=== PATIENT | male | born 1955 | race Caucasian/White ===

== ENCOUNTER 2016-02-26 08:52 | Inpatient (IN) | payer BC ==
[~2016-02-26] VITALS: Ht 177.8 cm; Wt 71.5 kg
[2016-03-03] VITALS (12 sets, daily range): BP systolic 96–123; BP diastolic 43–82; PULSE 66–109; TEMP 97.7–98.8
[2016-03-03] MEDS ORDERED: ASPIRIN 81M81 MG/TA2 PO (06:23)
[2016-03-03] MEDS ORDERED: CIALIS5 MG PO (06:23)
[2016-03-03] MEDS ORDERED: MULTIPLE VITAMI1 CAP PO (06:24)
[2016-03-03] MEDS ORDERED: FOLIC ACID0.4 MG PO (06:25)
[2016-03-03] MEDS ORDERED: VITAMIN D1000 IU PO (06:26)
[2016-03-03] MEDS ORDERED: MAGNESIUM CHELA27 MG PO (06:27)
[2016-03-03 11:51] LABS: HEMATOCRIT 30.6 % (42.0-52.0); HEMOGLOBIN 10.1 g/dl (13.5-18.0)
[2016-03-04 02:26] VITALS: BP 110/66; PULSE 75; TEMP 98.2
[2016-03-04 04:54] VITALS: BP 116/62; PULSE 99; TEMP 99
[2016-03-04 06:34] LABS: MEAN CELL VOLUME 95 fl (80.0-100.0); MEAN CORPUSCULAR HGB CONC 33 g/dl (33.0-37.0); MEAN PLATELET VOLUME 10.4 fl (7.4-10.4); PLATELET COUNT 134 K/mm3 (130-400); RED BLOOD COUNT 3.19 M/mm3 (4.20-5.60); REDCELL DISTRIBUTION WIDTH-CV 12.1 % (11.5-14.5)
[2016-03-04 06:36] LABS: HEMATOCRIT 30.4 % (42.0-52.0); MEAN CORPUSCULAR HEMOGLOBIN 31 pg (27.0-31.0)
[2016-03-04 06:50] LABS: CALCIUM 7.5 mg/dL (8.4-10.2); CREATININE, serum 0.93 mg/dL (0.66-1.25)
[2016-03-04 09:55] VITALS: BP 122/72; PULSE 91; TEMP 97.1
[2016-03-04 14:51] VITALS: BP 139/76; PULSE 102; TEMP 99.1
[2016-03-04 17:47] VITALS: BP 134/87; PULSE 93; TEMP 97.5
[2016-03-04 22:00] VITALS: BP 129/71; PULSE 92; TEMP 99.2
[2016-03-05 02:34] VITALS: BP 107/63; PULSE 84; TEMP 98.3
[2016-03-05 06:20] VITALS: BP 133/79; PULSE 90; TEMP 100
[2016-03-05 09:51] VITALS: BP 130/73; PULSE 88; TEMP 98.5
[2016-03-05] MEDS ORDERED: LEVSIN0.125 M1 PO (13:59)
[2016-03-05] MEDS ORDERED: PERCOCET 325 MG1 TA2 PO (14:00)
[2016-03-05] MEDS ORDERED: CIPRO 500MG TA500 MG PO (14:01)
== END 2016-03-05 14:26 | disposition home or self-care (01) | DRG 708 ==
LOC: INPTSU 03-03 05:09 → SURG 03-03 07:30
PROVIDERS: Urology
PROC: 0TBD0ZX Excision of Urethra, Open Approach, Diagnostic (ICD-10-PCS; 2016-03-03)
PROC: 0VT00ZZ Resection of Prostate, Open Approach (ICD-10-PCS; principal; 2016-03-03 07:30)
DX: C61 Malignant neoplasm of prostate (principal)
CPT/HCPCS: A9284; J0690; J2250; J2704; J2795; J3010; J7120

== ENCOUNTER 2021-01-13 07:10 | Day surgery (SDC) | payer BC ==
[~2021-01-13] VITALS: Ht 175.3 cm; Wt 72.7 kg
[~2021-01-13 07:10] MED LIST: ASPIRIN 81M81 MG/TA2 PO; CIALIS5 MG PO; CIPRO 500MG TA500 MG PO; FOLIC ACID0.4 MG PO; LEVSIN0.125 M1 PO; MAGNESIUM CHELA27 MG PO; MULTIPLE VITAMI1 CAP PO; PERCOCET 325 MG1 TA2 PO; VITAMIN D1000 IU PO
[2021-01-13] MEDS ORDERED: COZAAR 25MG25 MG/TAB PO (07:27)
[2021-01-13] MEDS ORDERED: PRIL40 PO (07:28)
[2021-01-13 08:06] VITALS: BP 130/72; PULSE 68; TEMP 97.5
[2021-01-13 11:20] VITALS: BP 121/62; PULSE 94; TEMP 97.5
--- NOTE | 2021-01-13 11:20 | NUR ---
PATIENT TRANSPORTED PER CART [place] [facility] [place] [facility] [facility] ACCOMPANIED BY OR STAFF. MONITORS APPLIED. VSS ON ROOM AIR. PATIENT RESTING WITH EYES CLOSED AND EVEN RESPIRATIONS. PATIENT RESPONDS TO VERBAL STIMULI THEN RETURNS TO RESTING. VERBAL REPORT RECEIVED.
[2021-01-13 11:30] VITALS: BP 136/91; PULSE 85
--- NOTE | 2021-01-13 11:30 | NUR ---
VSS ON ROOM AIR. PATIENT HEAD ELVATED ON CART. PATIENT DENIES DISCOMFORT AND NAUSEA. RETURNS TO [facility]. PATIENT GIVEN COFFEE TO DRINK.
[2021-01-13] MEDS ORDERED: MOTRIN 600600 MG/TAB PO (11:35)
[2021-01-13] MEDS ORDERED: NORCO 325 MG-51 TAB PO (11:35)
[2021-01-13 11:45] VITALS: BP 126/85; PULSE 84
--- NOTE | 2021-01-13 11:45 | NUR ---
VSS ON ROOM AIR. PATIENT TOLERATES COFFEE WITHOUT PROBLEMS. PATIENT GIVEN MUFFIN TO EAT. TALKS WITH PATIENT.
[2021-01-13 12:00] VITALS: BP 138/91; PULSE 86
--- NOTE | 2021-01-13 12:05 | NUR ---
VSS ON ROOM AIR. PATIENT TOLERATES MUFFIN WITHOUT NAUSEA. PATIENT DENIES NEED TO VOID AT THIS TIME. TALKS WITH .
[2021-01-13 12:40] VITALS: BP 139/83; PULSE 85
--- NOTE | 2021-01-13 12:43 | NUR ---
VSS ON ROOM AIR. PATIENT UP TO RESTROOM AND VOIDS WITHOUT PROBLEMS. PATIENT DENIES NAUSEA AND DISCOMFORT. INCISION SITE CD&I. IV DC'D WITH CATHETER TIP INTACT. PRESSURE AND BANDAGE APPLIED. DISCHARGE INSTRUCTIONS GIVEN VERBAL AND DISCHARGE PACKET PROVIDED. QUESTIONS ANSWERED AND PATIENT AND VOICED UNDERSTANDING. PATIENT CHANGES INTO STREET CLOTHES. 1300 PATIENT DISCHARGED PER WHEEL CHAIR ACCOMPANIED BY IAC STAFF TO PRIVATE VECHILE DRIVEN BY .
== END 2021-01-13 13:00 | disposition home or self-care (01) ==
LOC: SDCO 07:10
DX: K40.90 Unilateral inguinal hernia, without obstruction or gangrene, not specified as recurrent (principal); I10 Essential (primary) hypertension; K21.9 Gastro-esophageal reflux disease without esophagitis; M19.90 Unspecified osteoarthritis, unspecified site; Z79.899 Other long term (current) drug therapy; Z87.891 Personal history of nicotine dependence; Z85.46 Personal history of malignant neoplasm of prostate; Z80.0 Family history of malignant neoplasm of digestive organs; Z83.3 Family history of diabetes mellitus
CPT/HCPCS: C1781; J0690; J2250; J2704; J3010; J7120